=== PATIENT | male | born 1940 | race Caucasian/White ===

== ENCOUNTER 2020-01-17 07:57 | Outpatient (CLI) | payer MEDICARE ==
--- NOTE | 2020-01-18 09:00 | NM ---
RADIOIODINE THYROID UPTAKE AND SCAN: HISTORY: Thyrotoxicosis, unspecified,. Hyperthyroidism. Low TSH. RADIOPHARMACEUTICAL: 250 uCi [id number] administered orally FINDINGS: Planar anterior and both anterior oblique images of the thyroid gland were obtained. There is homogeneous tracer distribution to both lobes of the thyroid gland without focal cold or hot nodules. The 24-hour uptake measures 16 % (normal 10-30%). IMPRESSION: Normal exam
== END 2020-01-17 07:58 | disposition home or self-care (01) ==
LOC: NM 07:57
PROVIDERS: ATTEND Internal Medicine Endocrinology, Diabetes & Metabolism
DX: E05.90 Thyrotoxicosis, unspecified without thyrotoxic crisis or storm (principal)
CPT/HCPCS: 78014; A9516

== ENCOUNTER 2020-05-17 09:17 | Outpatient (CLI) | payer MEDICARE | END 2020-05-17 09:18 | disposition home or self-care (01) | LOC: RAD 09:17 | PROVIDERS: ATTEND Internal Medicine Critical Care Medicine | DX: R06.00 Dyspnea, unspecified (principal) | CPT/HCPCS: 71046 ==

== ENCOUNTER 2020-07-12 13:12 | Outpatient (CLI) | payer MEDICARE | END 2020-07-12 13:13 | disposition home or self-care (01) | LOC: MRI 13:12 | PROVIDERS: ATTEND Psychiatry & Neurology Neurology | DX: G25.0 Essential tremor (principal); R55 Syncope and collapse; I67.82 Cerebral ischemia | CPT/HCPCS: 70553; 95816 ==

== ENCOUNTER 2020-07-31 08:40 | Outpatient (CLI) | payer MEDICARE ==
[2020-07-31 11:14] LABS: Hemoglobin 13.7 g/dL (13.5-17.5); Mean Corpuscular HGB CONC 33.9 g/dL (32.0-36.0); Mean Corpuscular Hemoglobin 34.1 pg (27.0-33.0); Mean Corpuscular Volume 100.5 fl (81.2-95.1); Mean Platelet Volume 10.7 fl (7.4-10.4); Platelet Count 199 10x3/uL (150-450); RBC Distribution Width 12.3 % (11.5-14.5); Red Blood Cell (RBC) Count 4.02 10x6/uL (4.32-5.72); White Blood Cell (WBC) Count 5.2 10x3/uL (3.5-10.5)
[2020-07-31 11:16] LABS: Anion Gap 15 mmol/L (10-20); BUN (Urea Nitrogen) 13 mg/dL (8.4-25.7); Calc. Creatinine Clearance 0 mL/min (70-130); Calcium 9.4 mg/dL (7.8-10.44); Carbon Dioxide 22 mmol/L (23-31); Chloride 110 mmol/L (98-107); Glucose 85 mg/dL (83-110); Potassium 4.6 mmol/L (3.5-5.1); Sodium 142 mmol/L (136-145)
[2020-07-31 11:21] LABS: Prothrombin Time 10.9 sec (9.5-12.1)
== END 2020-07-31 08:41 | disposition home or self-care (01) ==
LOC: LABBT 08:40
PROVIDERS: ATTEND Internal Medicine Cardiovascular Disease
DX: Z01.812 Encounter for preprocedural laboratory examination (principal); I47.2 Ventricular tachycardia
CPT/HCPCS: 80048; 85027; 85610

== ENCOUNTER 2020-08-03 09:11 | Day surgery (SDC) | payer MEDICARE ==
[2020-08-01 12:00] VITALS: BMI 21.8
[2020-08-03] MEDS ORDERED: Heparin 0 ML ONE (10:23)
[2020-08-03] MEDS ORDERED: Lidocaine 1% (PF) 30 ML VIAL ONE (10:23)
[2020-08-03] MEDS ORDERED: Heparin 10,000 UNITS/ 10 ML VIAL ONE ×2 (10:23→11:12)
[2020-08-03] MEDS ORDERED: Isoproterenol 0.2 MG/1 ML AMP ONE (11:13)
[2020-08-03] MEDS ORDERED: Propofol 500 MG/50 ML VIAL ONE (11:30)
[2020-08-03] MEDS ORDERED: Fentanyl 100 MCG/2 ML VIAL ONE (11:30)
[2020-08-03] MEDS ORDERED: Ondansetron PF 4 MG/2 ML Vial ONE (11:56)
[2020-08-03] MEDS ORDERED: PHENYLEPHRINE-NS 100 MCG/ML 10 ML SYRINGE ONE (11:56)
== END 2020-08-03 18:15 | disposition home or self-care (01) ==
LOC: CCL 09:11
PROVIDERS: ATTEND Internal Medicine Cardiovascular Disease
PROC: 02583ZZ Destruction of Conduction Mechanism, Percutaneous Approach (ICD-10-PCS; principal; 2020-08-03)
PROC: 02K83ZZ Map Conduction Mechanism, Percutaneous Approach (ICD-10-PCS; 2020-08-03)
PROC: 4A023FZ Measurement of Cardiac Rhythm, Percutaneous Approach (ICD-10-PCS; 2020-08-03)
PROC: 4A0234Z Measurement of Cardiac Electrical Activity, Percutaneous Approach (ICD-10-PCS; 2020-08-03)
DX: I47.2 Ventricular tachycardia (principal); I49.3 Ventricular premature depolarization; I10 Essential (primary) hypertension; E78.5 Hyperlipidemia, unspecified; I25.10 Atherosclerotic heart disease of native coronary artery without angina pectoris; J44.9 Chronic obstructive pulmonary disease, unspecified; K21.9 Gastro-esophageal reflux disease without esophagitis; Z85.038 Personal history of other malignant neoplasm of large intestine; Z87.891 Personal history of nicotine dependence; Z79.82 Long term (current) use of aspirin; Z79.899 Other long term (current) drug therapy; Z95.1 Presence of aortocoronary bypass graft; Z95.5 Presence of coronary angioplasty implant and graft; Z90.49 Acquired absence of other specified parts of digestive tract
CPT/HCPCS: 76942; 93005; 93613; 93621; 93654; C1732; C2630; J1644; J2001; J2405; J2704; J3010

== ENCOUNTER 2021-09-18 11:36 | Outpatient (CLI) | payer MEDICARE | END 2021-09-18 11:37 | disposition home or self-care (01) | LOC: SCSMRI 11:36 | PROVIDERS: ATTEND Student in an Organized Health Care Education/Training Program | DX: H91.90 Unspecified hearing loss, unspecified ear (principal); I67.82 Cerebral ischemia | CPT/HCPCS: 70553; 82565 ==

== ENCOUNTER 2023-08-12 11:04 | Outpatient (CLI) | payer MEDICARE | END 2023-08-12 11:05 | LOC: RAD 11:04 | PROVIDERS: ATTEND Internal Medicine Critical Care Medicine | DX: R06.00 Dyspnea, unspecified (principal); J98.4 Other disorders of lung; R91.8 Other nonspecific abnormal finding of lung field | CPT/HCPCS: 71046 ==

== ENCOUNTER 2025-02-13 13:21 | Outpatient (CLI) | payer MEDICARE | END 2025-02-13 13:22 | disposition home or self-care (01) | LOC: SCSRAD 13:21 | PROVIDERS: ATTEND Family Medicine | DX: M25.571 Pain in right ankle and joints of right foot (principal) ==